=== PATIENT | male | born 1945 | race African-American/Black ===

== ENCOUNTER 2019-06-07 06:30 | Inpatient (IN) | payer MEDICARE, MEDICAID ==
[~2019-06-07] VITALS: Ht 165.1 cm; Wt 87.1 kg
[2019-06-07 11:10] LABS: BASOPHILS % 0.3 % (0.0-2.0); EOSINOPHILS % 0.9 % (0.0-5.0); HEMATOCRIT. 41.9 % (42.0-52.0); LYMPHOCYTES % 16.6 % (20.0-50.0); MEAN CORPUSCULAR HEMOGLOBIN 31.5 pg (28.0-32.0); MEAN CORPUSCULAR VOLUME 94.2 fL (80.0-94.0); MEAN PLATELET VOLUME 8.7 fl (7.4-10.4); MONOCYTES % 10.8 % (2.0-8.0); NEUTROPHILS % 71.4 % (40.0-76.0); PLATELET 148 x1000/uL (130-400); RED BLOOD CELL COUNT 4.45 mill/uL (4.7-6.1); RED CELL DISTRIBUTION WIDTH 14.9 % (11.6-14.6)
[2019-06-07 11:14] LABS: CHLORIDE 108 mEq/L (98-107); PROTHROMBIN TIME 10.5 sec (9.6-11.0)
[2019-06-07 11:21] LABS: ETHANOL BLOOD < 10 mg/dL
[2019-06-07] MEDS ORDERED: SODIUM CHLORIDE 0.9% 500 ML IV ONE (11:43)
[2019-06-07 13:22] LABS: CLARITY URINE CLOUDY (CLEAR); COLOR URINE YELLOW (YELLOW); KETONES URINE NEGATIVE (NEGATIVE); LEUKOCYTE ESTERASE URINE 2+ (NEGATIVE); NITRITE URINE NEGATIVE (NEGATIVE); OCCULT BLOOD URINE 1+ (NEGATIVE); PROTEIN URINE 2+ (NEGATIVE); SPECIFIC GRAVITY URINE 1.016 (1.005-1.030); UROBILINOGEN URINE 0.2 E.U./dL (0.2-1.0)
[2019-06-07 13:35] LABS: *BARBITURATES SCREEN URINE NEGATIVE (NEGATIVE); *BENZODIAZEPINES SCREEN URINE NEGATIVE (NEGATIVE); CANNABINOID URINE SCREEN NEGATIVE (NEGATIVE); METHADONE URINE SCREEN NEGATIVE (NEGATIVE); OPIATES URINE SCREEN NEGATIVE (NEGATIVE); PHENCYCLIDINE URINE SCREEN NEGATIVE (NEGATIVE)
[2019-06-07 13:37] LABS: *COCAINE SCREEN URINE NEGATIVE (NEGATIVE)
[2019-06-07 13:39] LABS: *AMPHETAMINES SCREEN URINE NEGATIVE (NEGATIVE)
[2019-06-07] MEDS ORDERED: CEFTRIAXONE 1 G PREMIX 50 ML IV ONE (14:30)
[2019-06-07] MEDS ORDERED: HYDRALAZINE 20MG/ML VIAL IV ONE (19:45)
[2019-06-07] MEDS ORDERED: DIPHENHYDRAMINE 50MG/ML VIAL IV PRN (22:00)
[2019-06-07] MEDS ORDERED: ACETAMINOPHEN 325MG TABLET PO PRN (22:00)
[2019-06-07] MEDS ORDERED: ONDANSETRON HCL 4MG/2ML INJ IV PRN (22:00)
[2019-06-07] MEDS ORDERED: MAGNESIUM/ALUMINUM HYDROXIDE/SIMETHICONE 30ML UDC PO PRN (22:00)
[2019-06-07] MEDS ORDERED: CLONIDINE 0.1MG TABLET PO PRN (22:00)
[2019-06-07] MEDS ORDERED: MVI, ADULT NO.1 10 ML, FOLIC ACID 1 MG, THIAMINE HCL 100 MG in SODIUM CHLORIDE 0.9% 1,0... IV SCH ×4 (22:00)
[2019-06-07] MEDS ORDERED: HYDRALAZINE 20MG/ML VIAL IV PRN (22:00)
[2019-06-07 22:35] LABS: T4 FREE 1.25 ng/dL (0.76-1.46)
[2019-06-07] MEDS ORDERED: LORAZEPAM 2MG/ML CPJ ONE (23:47)
[2019-06-07] MEDS ORDERED: HALOPERIDOL LACTATE 5MG/ML VIAL IM ONE (23:48)
[2019-06-08] MEDS ORDERED: LORAZEPAM 2MG/ML CPJ IV SCH
[2019-06-08] MEDS ORDERED: DIPHENHYDRAMINE 50MG/ML VIAL IV ONE
[2019-06-08] MEDS ORDERED: HALOPERIDOL LACTATE 5MG/ML VIAL IM SCH
[2019-06-08] MEDS ORDERED: DIPHENHYDRAMINE 50MG/ML VIAL IV PRN (00:15)
[2019-06-08] MEDS ORDERED: LORAZEPAM 2MG/ML CPJ IV PRN (00:15)
[2019-06-08] MEDS ORDERED: HALOPERIDOL LACTATE 5MG/ML VIAL IM PRN (00:15)
[2019-06-08] MEDS ORDERED: SODIUM CHLORIDE 0.9% 1,000 ML IV SCH (04:00)
[2019-06-08 04:40] LABS: BASOPHILS % 1.2 % (0.0-2.0); EOSINOPHILS % 0.6 % (0.0-5.0); HEMATOCRIT. 44.4 % (42.0-52.0); HEMOGLOBIN. 14.9 g/dL (14.0-18.0); LYMPHOCYTES % 11.2 % (20.0-50.0); MEAN CORPUSCULAR HEMOGLOBIN 31.6 pg (28.0-32.0); MEAN CORPUSCULAR VOLUME 94.1 fL (80.0-94.0); MEAN PLATELET VOLUME 8.7 fl (7.4-10.4); MONOCYTES % 9.3 % (2.0-8.0); NEUTROPHILS % 77.7 % (40.0-76.0); PLATELET 158 x1000/uL (130-400); RED BLOOD CELL COUNT 4.72 mill/uL (4.7-6.1); RED CELL DISTRIBUTION WIDTH 14.6 % (11.6-14.6)
[2019-06-08 04:50] LABS: CHLORIDE 108 mEq/L (98-107)
[2019-06-08 04:56] LABS: PHOSPHORUS 1.7 mg/dL (2.5-4.9)
[2019-06-08] MEDS: NIFEDIPINE XL 30MG TAB PO SCH ×2 (10:26→20:19)
[2019-06-08] MEDS ORDERED: ENOXAPARIN 40MG/0.4ML SYR SUBCUT SCH (13:00)
[2019-06-08 13:20] VITALS: BP 165/97
[2019-06-08] MEDS ORDERED: CEFTRIAXONE 1 G PREMIX 50 ML IV SCH ×2 (15:00→17:00)
[2019-06-08] MEDS ORDERED: METH250T26 MT (15:13)
[2019-06-08] MEDS ORDERED: HYDR12.54 MT (15:13)
[2019-06-08] MEDS ORDERED: IMIP25TA6 MT (15:13)
[2019-06-08] MEDS ORDERED: FISH MT (15:39)
[2019-06-08] MEDS ORDERED: FINA1TAB18 MT (15:39)
[2019-06-08] MEDS ORDERED: TERA10CA4 MT (15:39)
[2019-06-08] MEDS ORDERED: [UNRECOGNIZED DRUG - CODE] PO (15:39)
[2019-06-08] MEDS ORDERED: METF-815 MT (15:39)
[2019-06-08 16:52] VITALS: BP 116/78
[2019-06-08 20:00] VITALS: BP 127/58
[2019-06-08] MEDS: ENOXAPARIN 30MG/0.3ML SYR SUBCUT SCH (20:52)
[2019-06-09] VITALS: BP_SYST 127; BP_SYST 95; BP_DIAS 58; BP_DIAS 60
[2019-06-09 04:00] VITALS: BP 141/71
[2019-06-09 08:17] VITALS: BP 107/75
[2019-06-09] MEDS ORDERED: INFLUENZA VIRUS VACCINE(AFLURIA) 0.5ML SYR IM ONE (09:00)
[2019-06-09] MEDS ORDERED: PNEUMOCOCCAL 23-VAL P-SAC VAC 0.5 ML IM ONE (09:00)
[2019-06-09] MEDS: NIFEDIPINE XL 30MG TAB PO SCH ×2 (09:14→20:30)
[2019-06-09] MEDS: ENOXAPARIN 30MG/0.3ML SYR SUBCUT SCH ×2 (09:14→20:30)
[2019-06-09] MEDS ORDERED: SODIUM PHOS,M-BASIC-D-BASIC 20 MM in DEXT 5% WATER 243.3333 ML IV NR (10:30)
[2019-06-09 12:38] VITALS: BP 144/82
[2019-06-09] MEDS ORDERED: DEXTROSE 50% WATER 50ML SYRINGE IV PRN (13:15)
[2019-06-09 16:15] VITALS: BP 128/79
[2019-06-09] MEDS: MEROPENEM 1,000 MG in SODIUM CHLORIDE 0.9% 100 ML IV SCH ×2 (17:05→22:19)
[2019-06-09] MEDS: BLOOD SUGAR DIAGNOSTIC STRIP TEST SCH ×2 (17:10→20:30)
[2019-06-09] MEDS: INSULIN LISPRO 100 UNITS/ML SUBCUT SCH ×2 (17:40→21:00)
[2019-06-09 20:00] VITALS: BP 116/73
[2019-06-09] MEDS ORDERED: TERAZOSIN HCL 5MG CAPSULE PO SCH (21:00)
[2019-06-09] MEDS ORDERED: IMIPRAMINE HCL 25MG TABLET PO SCH (21:00)
[2019-06-10] VITALS: BP 118/60
[2019-06-10 04:00] VITALS: BP 142/86
[2019-06-10] MEDS: MEROPENEM 1,000 MG in SODIUM CHLORIDE 0.9% 100 ML IV SCH ×2 (06:00→14:26)
[2019-06-10] MEDS: INSULIN LISPRO 100 UNITS/ML SUBCUT SCH ×2 (07:40→12:03)
[2019-06-10] MEDS: BLOOD SUGAR DIAGNOSTIC STRIP TEST SCH ×2 (07:42→12:03)
[2019-06-10 07:57] VITALS: BP 154/78
[2019-06-10] MEDS: NIFEDIPINE XL 30MG TAB PO SCH (08:19)
[2019-06-10] MEDS: ENOXAPARIN 30MG/0.3ML SYR SUBCUT SCH (08:20)
[2019-06-10] MEDS ORDERED: FINASTERIDE 5MG TABLET PO SCH (09:00)
[2019-06-10 12:00] VITALS: BP 148/79
[2019-06-10 14:56] VITALS: BP 148/79
[2019-06-10 16:00] VITALS: BP 148/81
== END 2019-06-10 17:25 | disposition home or self-care (01) | DRG 470 ==
LOC: ER 06:51 → 8WST 19:39 → EDBEDREQTM 19:43 → EDBEDREQ 19:43 → EDBEDREQSVC 19:43 → ENRESERV 06-08 08:33
PROVIDERS: ADMIT Internal Medicine; ATTEND Internal Medicine
DX: I12.9 Hypertensive chronic kidney disease with stage 1 through stage 4 chronic kidney disease, or unspecified chronic kidney disease (principal); E11.22 Type 2 diabetes mellitus with diabetic chronic kidney disease; N39.0 Urinary tract infection, site not specified; I16.1 Hypertensive emergency; F23 Brief psychotic disorder; H54.8 Legal blindness, as defined in USA; N18.9 Chronic kidney disease, unspecified; F32.9 Major depressive disorder, single episode, unspecified; F41.9 Anxiety disorder, unspecified; Z87.891 Personal history of nicotine dependence; Z82.49 Family history of ischemic heart disease and other diseases of the circulatory system
CPT/HCPCS: 36415; 71045; 80053; 80305; 80320; 81003; 82962; 83036; 83735; 84100; 84439; 84443; 84484; 85025; 87077; 87186; 93005; 99285; J0360; J0696; J1200; J1630; J1650; J2060; J2185; J3411; J3490; J7030; J7050; J7060; G0480

== ENCOUNTER 2020-11-01 10:49 | Inpatient (IN) | payer MEDICARE, MEDICAID ==
[~2020-11-01] VITALS: Ht 175.3 cm; Wt 77.6 kg
[~2020-11-01 10:49] MED LIST: FINA1TAB18 MT; FISH MT; HYDR12.54 MT; IMIP25TA6 MT; METF-873 MT; METH250T26 MT; TERA10CA4 MT; [UNRECOGNIZED DRUG - CODE] PO
[2020-11-01 11:37] LABS: BASOPHILS % 1.1 % (0.0-2.0); EOSINOPHILS % 1.5 % (0.0-5.0); HEMATOCRIT. 35.1 % (42.0-52.0); HEMOGLOBIN. 11.9 g/dL (14.0-18.0); MEAN CORPUSCULAR HEMOGLOBIN 31.3 pg (28.0-32.0); MEAN CORPUSCULAR VOLUME 92.2 fL (80.0-94.0); MEAN PLATELET VOLUME 7.2 fl (7.4-10.4); MONOCYTES % 9.1 % (2.0-8.0); NEUTROPHILS % 65.3 % (40.0-76.0); PLATELET 180 x1000/uL (130-400); RED CELL DISTRIBUTION WIDTH 15.7 % (11.6-14.6)
[2020-11-01 11:44] LABS: CHLORIDE 115 mEq/L (98-107)
[2020-11-01 11:49] LABS: PROTHROMBIN TIME 10.4 sec (9.6-11.0)
[2020-11-01] MEDS ORDERED: CLOP75TA33 MT (13:54)
[2020-11-01] MEDS ORDERED: AMLO10TA80 PO (13:54)
[2020-11-01 14:00] LABS: CLARITY URINE CLEAR (CLEAR); COLOR URINE YELLOW (YELLOW); KETONES URINE NEGATIVE (NEGATIVE); LEUKOCYTE ESTERASE URINE 1+ (NEGATIVE); NITRITE URINE NEGATIVE (NEGATIVE); OCCULT BLOOD URINE NEGATIVE (NEGATIVE); PROTEIN URINE TRACE (NEGATIVE); SPECIFIC GRAVITY URINE 1.014 (1.005-1.030); UROBILINOGEN URINE 0.2 E.U./dL (0.2-1.0)
[2020-11-01] MEDS ORDERED: SODIUM CHLORIDE 0.9% 1,000 ML IV ONE (14:00)
[2020-11-01] MEDS ORDERED: CEFTRIAXONE 1 G PREMIX 50 ML IV ONE (14:15)
[2020-11-01] MEDS ORDERED: METRONIDAZOLE 500 MG PREMIX 100 ML IV NR (15:30)
[2020-11-01] MEDS ORDERED: ONDANSETRON HCL 4MG/2ML INJ IV PRN (16:30)
[2020-11-01] MEDS ORDERED: LORAZEPAM 0.5MG TABLET PO PRN (16:30)
[2020-11-01] MEDS ORDERED: HYDROCODONE/ACETAMINOPHEN 5/325MG TABLET PO PRN (16:30)
[2020-11-01] MEDS ORDERED: IPRATROPIUM/ALBUTEROL 0.5-3(2.5)MG/3ML NEB HHN PRN (16:30)
[2020-11-01] MEDS ORDERED: CEFEPIME 2GM PREMIX 100 ML IV NR (16:30)
[2020-11-01] MEDS ORDERED: CLONIDINE 0.1MG TABLET PO PRN (16:30)
[2020-11-01 17:19] VITALS: BP 150/90
[2020-11-01 17:34] VITALS: BP 150/90
[2020-11-01 20:00] VITALS: BP 126/66
[2020-11-01] MEDS: SODIUM CHLORIDE 0.9% 1,000 ML IV SCH (21:21)
[2020-11-02] VITALS: BP 139/69
[2020-11-02 04:00] VITALS: BP 164/69
[2020-11-02] MEDS: SODIUM CHLORIDE 0.9% 1,000 ML IV SCH ×2 (05:15→17:45)
[2020-11-02] MEDS ORDERED: CEFEPIME 2,000 MG in DEXT 5% WATER 100 ML IV SCH (06:00)
[2020-11-02 08:00] VITALS: BP 160/70
[2020-11-02] MEDS: CLOPIDOGREL 75MG TABLET PO SCH (10:37)
[2020-11-02] MEDS: FISH OIL/OMEGA-3 FATTY ACIDS 1000MG CAPSULE PO SCH (10:37)
[2020-11-02] MEDS: AMLODIPINE 10MG TABLET PO SCH (10:37)
[2020-11-02] MEDS: FINASTERIDE 5MG TABLET PO SCH (10:37)
[2020-11-02] MEDS ORDERED: METFORMIN HCL 500MG TABLET PO SCH (10:45)
[2020-11-02] MEDS ORDERED: METHYLDOPA 250MG TABLET PO SCH (11:00)
[2020-11-02 12:00] VITALS: BP 145/83
[2020-11-02 15:35] LABS: BASOPHILS % 0.7 % (0.0-2.0); EOSINOPHILS % 3.1 % (0.0-5.0); HEMATOCRIT. 34.9 % (42.0-52.0); LYMPHOCYTES % 18.7 % (20.0-50.0); MEAN CORPUSCULAR HEMOGLOBIN 31.9 pg (28.0-32.0); MEAN CORPUSCULAR VOLUME 92.3 fL (80.0-94.0); MEAN PLATELET VOLUME 7.8 fl (7.4-10.4); MONOCYTES % 9.8 % (2.0-8.0); NEUTROPHILS % 67.7 % (40.0-76.0); PLATELET 184 x1000/uL (130-400); RED BLOOD CELL COUNT 3.78 mill/uL (4.7-6.1); RED CELL DISTRIBUTION WIDTH 15.4 % (11.6-14.6)
[2020-11-02 15:40] LABS: CHLORIDE 110 mEq/L (98-107)
[2020-11-02 16:00] VITALS: BP 141/82
[2020-11-02 18:17] LABS: T4 FREE 1.03 ng/dL (0.76-1.46)
[2020-11-02 18:27] LABS: FOLIC ACID (FOLATE) SERUM 10.6 ng/mL (>5.38)
[2020-11-02] MEDS: CEFEPIME 2,000 MG in DEXT 5% WATER 100 ML IV SCH (19:50)
[2020-11-02 20:00] VITALS: BP 146/72
[2020-11-02] MEDS: IMIPRAMINE HCL 25MG TABLET PO SCH (21:43)
[2020-11-02] MEDS: TERAZOSIN HCL 5MG CAPSULE PO SCH (21:44)
[2020-11-02] MEDS ORDERED: CLONIDINE 0.1MG TABLET PO PRN (22:00)
[2020-11-03] VITALS: BP 132/73
[2020-11-03 04:00] VITALS: BP 130/93
[2020-11-03] MEDS: SODIUM CHLORIDE 0.9% 1,000 ML IV SCH ×2 (06:05→18:26)
[2020-11-03] MEDS: CEFEPIME 2,000 MG in DEXT 5% WATER 100 ML IV SCH ×2 (06:06→18:26)
[2020-11-03 06:38] LABS: CHLORIDE 110 mEq/L (98-107)
[2020-11-03 06:54] LABS: BASOPHILS % 0.8 % (0.0-2.0); EOSINOPHILS % 4.2 % (0.0-5.0); HEMATOCRIT. 38.8 % (42.0-52.0); HEMOGLOBIN. 12.8 g/dL (14.0-18.0); LYMPHOCYTES % 29.3 % (20.0-50.0); MEAN CORPUSCULAR HEMOGLOBIN 30.7 pg (28.0-32.0); MEAN CORPUSCULAR VOLUME 92.7 fL (80.0-94.0); MEAN PLATELET VOLUME 7.9 fl (7.4-10.4); NEUTROPHILS % 53.7 % (40.0-76.0); PLATELET 167 x1000/uL (130-400); RED BLOOD CELL COUNT 4.19 mill/uL (4.7-6.1); RED CELL DISTRIBUTION WIDTH 15.5 % (11.6-14.6)
[2020-11-03 08:00] VITALS: BP 128/81
[2020-11-03] MEDS: HYDROCHLOROTHIAZIDE 12.5MG CAPSULE PO SCH (08:54)
[2020-11-03] MEDS: AMLODIPINE 10MG TABLET PO SCH (08:55)
[2020-11-03] MEDS: METFORMIN HCL 500MG TABLET PO SCH (08:55)
[2020-11-03] MEDS: CLOPIDOGREL 75MG TABLET PO SCH (08:55)
[2020-11-03] MEDS: FINASTERIDE 5MG TABLET PO SCH (08:55)
[2020-11-03] MEDS: FISH OIL/OMEGA-3 FATTY ACIDS 1000MG CAPSULE PO SCH (08:55)
[2020-11-03] MEDS ORDERED: METHYLDOPA 250MG TABLET PO SCH (09:00)
[2020-11-03 12:00] VITALS: BP 120/75
[2020-11-03 16:00] VITALS: BP 123/85
[2020-11-03] MEDS: METOPROLOL TARTRATE 25MG TABLET PO SCH ×2 (17:02→21:19)
[2020-11-03 18:44] LABS: *AMPHETAMINES SCREEN URINE NEGATIVE (NEGATIVE); *BARBITURATES SCREEN URINE NEGATIVE (NEGATIVE); *BENZODIAZEPINES SCREEN URINE NEGATIVE (NEGATIVE); *COCAINE SCREEN URINE NEGATIVE (NEGATIVE); METHADONE URINE SCREEN NEGATIVE (NEGATIVE); OPIATES URINE SCREEN NEGATIVE (NEGATIVE)
[2020-11-03 18:45] LABS: CANNABINOID URINE SCREEN NEGATIVE (NEGATIVE); PHENCYCLIDINE URINE SCREEN NEGATIVE (NEGATIVE)
[2020-11-03 20:00] VITALS: BP 115/67
[2020-11-03] MEDS: IMIPRAMINE HCL 25MG TABLET PO SCH (21:19)
[2020-11-03] MEDS: TERAZOSIN HCL 5MG CAPSULE PO SCH (21:20)
[2020-11-04] VITALS (7 sets, daily range): BP systolic 107–138; BP diastolic 60–76
[2020-11-04] MEDS: METFORMIN HCL 500MG TABLET PO SCH (05:34)
[2020-11-04] MEDS: CEFEPIME 2,000 MG in DEXT 5% WATER 100 ML IV SCH ×2 (05:34→18:08)
[2020-11-04 06:34] LABS: BASOPHILS % 0.8 % (0.0-2.0); EOSINOPHILS % 4.5 % (0.0-5.0); HEMOGLOBIN. 12.2 g/dL (14.0-18.0); LYMPHOCYTES % 28.2 % (20.0-50.0); MEAN CORPUSCULAR HEMOGLOBIN 31.4 pg (28.0-32.0); MEAN CORPUSCULAR VOLUME 92.5 fL (80.0-94.0); MEAN PLATELET VOLUME 7.9 fl (7.4-10.4); MONOCYTES % 13.7 % (2.0-8.0); NEUTROPHILS % 52.8 % (40.0-76.0); PLATELET 157 x1000/uL (130-400); RED BLOOD CELL COUNT 3.89 mill/uL (4.7-6.1); RED CELL DISTRIBUTION WIDTH 15.3 % (11.6-14.6)
[2020-11-04 06:54] LABS: CHLORIDE 111 mEq/L (98-107)
[2020-11-04] MEDS: HYDROCHLOROTHIAZIDE 12.5MG CAPSULE PO SCH (08:33)
[2020-11-04] MEDS: AMLODIPINE 10MG TABLET PO SCH (08:33)
[2020-11-04] MEDS: SODIUM CHLORIDE 0.9% 1,000 ML IV SCH ×2 (08:33→18:32)
[2020-11-04] MEDS: FINASTERIDE 5MG TABLET PO SCH (08:34)
[2020-11-04] MEDS: FISH OIL/OMEGA-3 FATTY ACIDS 1000MG CAPSULE PO SCH (08:34)
[2020-11-04] MEDS: CLOPIDOGREL 75MG TABLET PO SCH (08:34)
[2020-11-04] MEDS: METOPROLOL TARTRATE 25MG TABLET PO SCH (08:34)
[2020-11-04] MEDS: SPIRONOLACTONE 25MG TABLET PO SCH (09:48)
[2020-11-04] MEDS: LISINOPRIL 5MG TABLET PO SCH (09:48)
[2020-11-04] MEDS: TERAZOSIN HCL 5MG CAPSULE PO SCH (21:08)
[2020-11-04] MEDS: IMIPRAMINE HCL 25MG TABLET PO SCH (21:08)
[2020-11-04] MEDS: DOCUSATE SODIUM 100MG CAPSULE PO PRN (21:20)
[2020-11-05] VITALS: BP 124/76
[2020-11-05 04:00] VITALS: BP 135/90
[2020-11-05 05:37] LABS: CHLORIDE 112 mEq/L (98-107)
[2020-11-05] MEDS: CEFEPIME 2,000 MG in DEXT 5% WATER 100 ML IV SCH ×2 (06:19→18:31)
[2020-11-05] MEDS: SODIUM CHLORIDE 0.9% 1,000 ML IV SCH ×2 (06:19→21:14)
[2020-11-05] MEDS: METFORMIN HCL 500MG TABLET PO SCH (06:24)
[2020-11-05 06:29] LABS: BASOPHILS % 0.8 % (0.0-2.0); EOSINOPHILS % 3.8 % (0.0-5.0); HEMATOCRIT. 35.7 % (42.0-52.0); HEMOGLOBIN. 11.9 g/dL (14.0-18.0); LYMPHOCYTES % 27.6 % (20.0-50.0); MEAN CORPUSCULAR HEMOGLOBIN 30.8 pg (28.0-32.0); MEAN CORPUSCULAR VOLUME 92.2 fL (80.0-94.0); MEAN PLATELET VOLUME 8.2 fl (7.4-10.4); MONOCYTES % 12.5 % (2.0-8.0); NEUTROPHILS % 55.3 % (40.0-76.0); PLATELET 167 x1000/uL (130-400); RED BLOOD CELL COUNT 3.87 mill/uL (4.7-6.1); RED CELL DISTRIBUTION WIDTH 15.3 % (11.6-14.6)
[2020-11-05 08:00] VITALS: BP 107/67
[2020-11-05] MEDS: AMLODIPINE 10MG TABLET PO SCH (09:00)
[2020-11-05] MEDS: LISINOPRIL 5MG TABLET PO SCH (09:00)
[2020-11-05] MEDS: CLOPIDOGREL 75MG TABLET PO SCH (09:44)
[2020-11-05] MEDS: FINASTERIDE 5MG TABLET PO SCH (09:44)
[2020-11-05] MEDS: SPIRONOLACTONE 25MG TABLET PO SCH (09:44)
[2020-11-05] MEDS: FISH OIL/OMEGA-3 FATTY ACIDS 1000MG CAPSULE PO SCH (09:44)
[2020-11-05 12:00] VITALS: BP 150/69
[2020-11-05] MEDS: DOCUSATE SODIUM 100MG CAPSULE PO PRN (12:32)
[2020-11-05 16:00] VITALS: BP 108/72
[2020-11-05 20:00] VITALS: BP 131/78
[2020-11-05] MEDS: IMIPRAMINE HCL 25MG TABLET PO SCH (20:34)
[2020-11-05] MEDS: TERAZOSIN HCL 5MG CAPSULE PO SCH (20:34)
[2020-11-06] VITALS: BP 102/60
[2020-11-06 04:00] VITALS: BP 152/81
[2020-11-06 06:13] LABS: BASOPHILS % 1.2 % (0.0-2.0); EOSINOPHILS % 4.4 % (0.0-5.0); HEMATOCRIT. 35.1 % (42.0-52.0); HEMOGLOBIN. 11.7 g/dL (14.0-18.0); MEAN CORPUSCULAR VOLUME 92.8 fL (80.0-94.0); MEAN PLATELET VOLUME 8.3 fl (7.4-10.4); MONOCYTES % 14.6 % (2.0-8.0); NEUTROPHILS % 48.8 % (40.0-76.0); PLATELET 159 x1000/uL (130-400); RED BLOOD CELL COUNT 3.78 mill/uL (4.7-6.1); RED CELL DISTRIBUTION WIDTH 15.1 % (11.6-14.6)
[2020-11-06 06:20] LABS: CHLORIDE 112 mEq/L (98-107)
[2020-11-06] MEDS: METFORMIN HCL 500MG TABLET PO SCH (06:58)
[2020-11-06] MEDS: CEFEPIME 2,000 MG in DEXT 5% WATER 100 ML IV SCH ×2 (06:58→20:59)
[2020-11-06 08:00] VITALS: BP_SYST 104; BP_SYST 145; BP_DIAS 80; BP_DIAS 82
[2020-11-06] MEDS ORDERED: HEPARIN SODIUM 1,000 UNIT/1ML VIAL IV ONE (08:21)
[2020-11-06] MEDS: CLOPIDOGREL 75MG TABLET PO SCH (10:50)
[2020-11-06] MEDS: SPIRONOLACTONE 25MG TABLET PO SCH (10:50)
[2020-11-06] MEDS: AMLODIPINE 10MG TABLET PO SCH (10:50)
[2020-11-06] MEDS: FISH OIL/OMEGA-3 FATTY ACIDS 1000MG CAPSULE PO SCH (10:50)
[2020-11-06] MEDS: LISINOPRIL 5MG TABLET PO SCH (10:50)
[2020-11-06] MEDS: FINASTERIDE 5MG TABLET PO SCH (10:50)
[2020-11-06] MEDS: SODIUM CHLORIDE 0.9% 1,000 ML IV SCH (10:51)
[2020-11-06 15:17] VITALS: BP 104/80
[2020-11-06] MEDS ORDERED: IODIXANOL 320MG/ML 100 ML BOTTLE IV ONE (15:23)
[2020-11-06] MEDS ORDERED: LIDOCAINE HCL 1% 20ML VIAL (Pyxis) INJ ONE (15:23)
[2020-11-06] MEDS ORDERED: MIDAZOLAM HCL 2 MG/2 ML VIAL ONE (15:40)
[2020-11-06] MEDS ORDERED: FENTANYL CITRATE/PF 50MCG/ML 2ML VIAL ONE (15:40)
[2020-11-06] MEDS ORDERED: VERAPAMIL HCL 2.5 MG/1 ML 2ML VIAL IV ONE (15:41)
[2020-11-06] MEDS ORDERED: ATROPINE SULFATE 1MG/10ML SYR IV PRN (17:15)
[2020-11-06] MEDS ORDERED: HYDRALAZINE 20MG/ML VIAL IV PRN (18:15)
[2020-11-06 20:00] VITALS: BP 139/89
[2020-11-06] MEDS: IMIPRAMINE HCL 25MG TABLET PO SCH (20:59)
[2020-11-06] MEDS: TERAZOSIN HCL 5MG CAPSULE PO SCH (20:59)
[2020-11-07] VITALS (7 sets, daily range): BP systolic 104–137; BP diastolic 54–83
[2020-11-07] MEDS: SODIUM CHLORIDE 0.9% 1,000 ML IV SCH ×3 (02:51→22:10)
[2020-11-07] MEDS: METFORMIN HCL 500MG TABLET PO SCH (06:17)
[2020-11-07 06:50] LABS: BASOPHILS % 0.6 % (0.0-2.0); HEMATOCRIT. 34.3 % (42.0-52.0); HEMOGLOBIN. 11.5 g/dL (14.0-18.0); LYMPHOCYTES % 16.8 % (20.0-50.0); MEAN CORPUSCULAR HEMOGLOBIN 31.2 pg (28.0-32.0); MEAN CORPUSCULAR VOLUME 92.8 fL (80.0-94.0); MEAN PLATELET VOLUME 8.2 fl (7.4-10.4); MONOCYTES % 11.8 % (2.0-8.0); NEUTROPHILS % 68.8 % (40.0-76.0); PLATELET 170 x1000/uL (130-400); RED BLOOD CELL COUNT 3.69 mill/uL (4.7-6.1); RED CELL DISTRIBUTION WIDTH 15.2 % (11.6-14.6)
[2020-11-07 06:51] LABS: CHLORIDE 108 mEq/L (98-107)
[2020-11-07] MEDS: CLOPIDOGREL 75MG TABLET PO SCH (10:29)
[2020-11-07] MEDS: FISH OIL/OMEGA-3 FATTY ACIDS 1000MG CAPSULE PO SCH (10:30)
[2020-11-07] MEDS: SPIRONOLACTONE 25MG TABLET PO SCH (10:30)
[2020-11-07] MEDS: FINASTERIDE 5MG TABLET PO SCH (10:31)
[2020-11-07] MEDS: AMLODIPINE 10MG TABLET PO SCH (10:31)
[2020-11-07] MEDS: LISINOPRIL 5MG TABLET PO SCH (10:32)
[2020-11-07] MEDS ORDERED: LISI-186 PO ×2 (11:52)
[2020-11-07] MEDS ORDERED: SPIR25TA PO ×2 (11:52)
[2020-11-07] MEDS: TERAZOSIN HCL 5MG CAPSULE PO SCH (20:31)
[2020-11-07] MEDS: IMIPRAMINE HCL 25MG TABLET PO SCH (20:55)
[2020-11-08] VITALS: BP_SYST 104; BP_SYST 136; BP_DIAS 54; BP_DIAS 88
[2020-11-08 04:00] VITALS: BP 125/72
[2020-11-08] MEDS: METFORMIN HCL 500MG TABLET PO SCH (06:18)
[2020-11-08 08:00] VITALS: BP 117/60
[2020-11-08] MEDS: CLOPIDOGREL 75MG TABLET PO SCH (09:10)
[2020-11-08] MEDS: FISH OIL/OMEGA-3 FATTY ACIDS 1000MG CAPSULE PO SCH (09:10)
[2020-11-08] MEDS: FINASTERIDE 5MG TABLET PO SCH (09:10)
[2020-11-08] MEDS: AMLODIPINE 10MG TABLET PO SCH (09:11)
[2020-11-08] MEDS: LISINOPRIL 5MG TABLET PO SCH (09:11)
[2020-11-08] MEDS: CARVEDILOL 3.125 MG TABLET PO SCH ×2 (09:11→21:30)
[2020-11-08] MEDS: SPIRONOLACTONE 25MG TABLET PO SCH (09:12)
[2020-11-08 12:00] VITALS: BP 132/76
[2020-11-08 16:00] VITALS: BP 125/64
[2020-11-08 20:00] VITALS: BP 118/82
[2020-11-08] MEDS: TERAZOSIN HCL 5MG CAPSULE PO SCH (21:30)
[2020-11-08] MEDS: IMIPRAMINE HCL 25MG TABLET PO SCH (21:30)
[2020-11-08] MEDS: SODIUM CHLORIDE 0.9% 1,000 ML IV SCH ×2 (21:44→23:45)
[2020-11-08] MEDS ORDERED: IOHEXOL-300 100 ML BOTTLE ONE (22:47)
[2020-11-09] VITALS (7 sets, daily range): BP systolic 108–172; BP diastolic 59–96
[2020-11-09] MEDS: ACETAMINOPHEN 325MG TABLET PO PRN ×2 (01:47→17:46)
[2020-11-09 05:22] LABS: CHLORIDE 108 mEq/L (98-107)
[2020-11-09] MEDS: METFORMIN HCL 500MG TABLET PO SCH (06:33)
[2020-11-09] MEDS: FISH OIL/OMEGA-3 FATTY ACIDS 1000MG CAPSULE PO SCH (09:24)
[2020-11-09] MEDS: CLOPIDOGREL 75MG TABLET PO SCH (09:25)
[2020-11-09] MEDS: LISINOPRIL 5MG TABLET PO SCH (09:25)
[2020-11-09] MEDS: SPIRONOLACTONE 25MG TABLET PO SCH (09:25)
[2020-11-09] MEDS: CARVEDILOL 3.125 MG TABLET PO SCH ×2 (09:25→21:00)
[2020-11-09] MEDS: FINASTERIDE 5MG TABLET PO SCH (09:25)
[2020-11-09] MEDS: AMLODIPINE 10MG TABLET PO SCH (11:02)
[2020-11-09] MEDS: SODIUM CHLORIDE 0.9% 1,000 ML IV SCH (12:15)
[2020-11-09] MEDS: TERAZOSIN HCL 5MG CAPSULE PO SCH (21:31)
[2020-11-09] MEDS: IMIPRAMINE HCL 25MG TABLET PO SCH (21:32)
[2020-11-10] VITALS: BP 124/82
[2020-11-10] MEDS: SODIUM CHLORIDE 0.9% 1,000 ML IV SCH (01:43)
[2020-11-10 04:00] VITALS: BP 126/63
[2020-11-10 08:00] VITALS: BP 130/80
[2020-11-10] MEDS: METFORMIN HCL 500MG TABLET PO SCH (08:41)
[2020-11-10] MEDS: CLOPIDOGREL 75MG TABLET PO SCH (08:41)
[2020-11-10] MEDS: AMLODIPINE 10MG TABLET PO SCH (08:41)
[2020-11-10] MEDS: FISH OIL/OMEGA-3 FATTY ACIDS 1000MG CAPSULE PO SCH (08:41)
[2020-11-10] MEDS: SPIRONOLACTONE 25MG TABLET PO SCH (08:42)
[2020-11-10] MEDS: CARVEDILOL 3.125 MG TABLET PO SCH (08:42)
[2020-11-10] MEDS: LISINOPRIL 5MG TABLET PO SCH (08:42)
[2020-11-10] MEDS: FINASTERIDE 5MG TABLET PO SCH (08:42)
[2020-11-10] MEDS ORDERED: COR3 PO ×2 (10:26)
[2020-11-10] MEDS ORDERED: CARV3.1242 MT (11:41)
[2020-11-10] MEDS ORDERED: LISI-186 MT (11:41)
[2020-11-10] MEDS ORDERED: SPIR25TA MT (11:41)
[2020-11-10 11:42] VITALS: BP 125/73
== END 2020-11-10 12:30 | disposition home or self-care (01) | DRG 286 ==
LOC: ER 10:49 → EDBEDREQ 15:49 → EDBEDREQTM 15:49 → ENRESERV 16:07 → 5WST 17:48
PROVIDERS: ADMIT Internal Medicine; ATTEND Internal Medicine
PROC: 4A023N7 Measurement of Cardiac Sampling and Pressure, Left Heart, Percutaneous Approach (ICD-10-PCS; principal; 2020-11-06)
PROC: B2111ZZ Fluoroscopy of Multiple Coronary Arteries using Low Osmolar Contrast (ICD-10-PCS; 2020-11-06)
DX: I25.10 Atherosclerotic heart disease of native coronary artery without angina pectoris (principal); G92 Toxic encephalopathy; I50.23 Acute on chronic systolic (congestive) heart failure; N39.0 Urinary tract infection, site not specified; I13.0 Hypertensive heart and chronic kidney disease with heart failure and stage 1 through stage 4 chronic kidney disease, or unspecified chronic kidney disease; N17.9 Acute kidney failure, unspecified; I42.0 Dilated cardiomyopathy; D64.9 Anemia, unspecified; D72.821 Monocytosis (symptomatic); N18.9 Chronic kidney disease, unspecified; F03.90 Unspecified dementia, unspecified severity, without behavioral disturbance, psychotic disturbance, mood disturbance, and anxiety; E78.00 Pure hypercholesterolemia, unspecified; Z20.822 Contact with and (suspected) exposure to COVID-19; E11.22 Type 2 diabetes mellitus with diabetic chronic kidney disease; F32.9 Major depressive disorder, single episode, unspecified; I08.1 Rheumatic disorders of both mitral and tricuspid valves; Z86.73 Personal history of transient ischemic attack (TIA), and cerebral infarction without residual deficits; Z95.5 Presence of coronary angioplasty implant and graft
CPT/HCPCS: 36415; 70496; 70498; 70551; 71045; 80048; 80053; 80061; 80305; 81003; 82140; 82607; 82728; 82746; 83540; 83550; 83880; 84439; 84443; 84481; 84484; 85025; 87426; 93005; 93306; 93458; 97162; 99285; C1769; C1887; C1893; J0360; J0692; J0696; J1644; J2250; J3010; J3490; J7030; J7060; Q9967

== ENCOUNTER 2020-11-29 10:06 | Emergency (ER) | payer MEDICARE, MEDICAID ==
[~2020-11-29] VITALS: Ht 170.2 cm; Wt 82.0 kg
[~2020-11-29 10:06] MED LIST changes: +AMLO10TA80 PO; +CARV3.1242 MT; +CLOP75TA33 MT; -HYDR12.54 MT; +LISI-186 MT; +SPIR25TA MT
[2020-11-29] MEDS ORDERED: TERBUTALINE SULFATE 1MG/ML VIAL SUBCUT PRN (11:15)
[2020-11-29] MEDS ORDERED: PHENYLEPHRINE 50 MG in DEXT 5% WATER 245 ML IV PRN (11:15)
[2020-11-29] MEDS ORDERED: PHENYLEPHRINE HCL 10 MG/ML 1ML (IV VIAL) IV SCH (11:30)
[2020-11-29 12:01] LABS: BASOPHILS % 0.7 % (0.0-2.0); EOSINOPHILS % 1.7 % (0.0-5.0); HEMATOCRIT. 35.2 % (42.0-52.0); HEMOGLOBIN. 12.3 g/dL (14.0-18.0); LYMPHOCYTES % 23.3 % (20.0-50.0); MEAN CORPUSCULAR HEMOGLOBIN 32.6 pg (28.0-32.0); MEAN CORPUSCULAR VOLUME 92.8 fL (80.0-94.0); MEAN PLATELET VOLUME 8.5 fl (7.4-10.4); MONOCYTES % 14.1 % (2.0-8.0); NEUTROPHILS % 60.2 % (40.0-76.0); PLATELET 179 x1000/uL (130-400); RED BLOOD CELL COUNT 3.79 mill/uL (4.7-6.1); RED CELL DISTRIBUTION WIDTH 15.6 % (11.6-14.6)
[2020-11-29 12:12] LABS: PROTHROMBIN TIME 10.6 sec (9.6-11.0)
[2020-11-29 12:34] LABS: CHLORIDE 112 mEq/L (98-107)
[2020-11-29] MEDS ORDERED: TAMS-11 MT (12:52)
[2020-11-29 13:14] LABS: CLARITY URINE CLEAR (CLEAR); COLOR URINE YELLOW (YELLOW); KETONES URINE TRACE (NEGATIVE); LEUKOCYTE ESTERASE URINE TRACE (NEGATIVE); NITRITE URINE NEGATIVE (NEGATIVE); OCCULT BLOOD URINE NEGATIVE (NEGATIVE); PROTEIN URINE 1+ (NEGATIVE); SPECIFIC GRAVITY URINE 1.018 (1.005-1.030); UROBILINOGEN URINE 0.2 E.U./dL (0.2-1.0)
[2020-11-29 13:30] VITALS: BP 135/80
== END 2020-11-29 13:30 | disposition home or self-care (01) ==
LOC: ER 10:10
DX: T83.719A Erosion of other prosthetic materials to surrounding organ or tissue, initial encounter (principal); N48.30 Priapism, unspecified; E11.9 Type 2 diabetes mellitus without complications; E78.00 Pure hypercholesterolemia, unspecified; I10 Essential (primary) hypertension; H54.7 Unspecified visual loss; Y84.8 Other medical procedures as the cause of abnormal reaction of the patient, or of later complication, without mention of misadventure at the time of the procedure; Y92.9 Unspecified place or not applicable; Z98.62 Peripheral vascular angioplasty status; Z86.73 Personal history of transient ischemic attack (TIA), and cerebral infarction without residual deficits
CPT/HCPCS: 36415; 80053; 81003; 85025; 85610; 99283; J2370; J3105

== ENCOUNTER 2021-08-16 14:33 | Emergency (ER) | payer MEDICARE, MEDICAID ==
[~2021-08-16] VITALS: Ht 170.2 cm; Wt 73.0 kg
[~2021-08-16 14:33] MED LIST changes: +TAMS-11 MT
[2021-08-16 15:55] LABS: BASOPHILS % 0.4 % (0.0-2.0); EOSINOPHILS % 1.9 % (0.0-5.0); HEMATOCRIT. 38.7 % (42.0-52.0); HEMOGLOBIN. 12.8 g/dL (14.0-18.0); LYMPHOCYTES % 23.3 % (20.0-50.0); MEAN CORPUSCULAR HEMOGLOBIN 31.2 pg (28.0-32.0); MEAN CORPUSCULAR VOLUME 93.8 fL (80.0-94.0); MEAN PLATELET VOLUME 8.1 fl (7.4-10.4); NEUTROPHILS % 67.4 % (40.0-76.0); PLATELET 191 x1000/uL (130-400); RED BLOOD CELL COUNT 4.12 mill/uL (4.7-6.1); RED CELL DISTRIBUTION WIDTH 14.9 % (11.6-14.6)
[2021-08-16 15:56] LABS: CHLORIDE 112 mEq/L (98-107)
[2021-08-17] MEDS ORDERED: NA PHOS,M-B/NA PHOS,DI-BA ENEMA 118ML PR ONE (00:45)
[2021-08-17] MEDS ORDERED: DOCU-138 MT (01:42)
[2021-08-17 01:59] VITALS: BP 107/76
== END 2021-08-17 02:02 | disposition home or self-care (01) ==
LOC: ER 14:33
DX: K59.00 Constipation, unspecified (principal); I11.9 Hypertensive heart disease without heart failure; E78.00 Pure hypercholesterolemia, unspecified; I25.2 Old myocardial infarction; E11.9 Type 2 diabetes mellitus without complications; Z98.62 Peripheral vascular angioplasty status; Z98.890 Other specified postprocedural states
CPT/HCPCS: 36415; 71045; 80053; 83880; 85025; 93005; 99285

== ENCOUNTER 2022-02-24 12:32 | Emergency (ER) | payer MEDICARE, MEDICAID ==
[~2022-02-24] VITALS: Ht 177.8 cm; Wt 80.0 kg
[~2022-02-24 12:32] MED LIST changes: +DOCU-138 MT
[2022-02-24 12:58] VITALS: BP 118/79
[2022-02-24 16:05] LABS: BASOPHILS % 0.6 % (0.0-2.0); EOSINOPHILS % 3.6 % (0.0-5.0); HEMATOCRIT. 40.6 % (42.0-52.0); HEMOGLOBIN. 13.4 g/dL (14.0-18.0); LYMPHOCYTES % 26.3 % (20.0-50.0); MEAN CORPUSCULAR HEMOGLOBIN 30.8 pg (28.0-32.0); MEAN CORPUSCULAR VOLUME 93.6 fL (80.0-94.0); MEAN PLATELET VOLUME 8.6 fl (7.4-10.4); MONOCYTES % 7.3 % (2.0-8.0); NEUTROPHILS % 62.2 % (40.0-76.0); PLATELET 193 x1000/uL (130-400); RED BLOOD CELL COUNT 4.34 mill/uL (4.7-6.1); RED CELL DISTRIBUTION WIDTH 14.9 % (11.6-14.6)
[2022-02-24 16:06] LABS: CHLORIDE 112 mEq/L (98-107)
== END 2022-02-24 17:01 | disposition home or self-care (01) ==
LOC: ER 13:32
DX: K59.00 Constipation, unspecified (principal); N17.9 Acute kidney failure, unspecified; I11.9 Hypertensive heart disease without heart failure; E11.9 Type 2 diabetes mellitus without complications; E78.00 Pure hypercholesterolemia, unspecified; I25.2 Old myocardial infarction; H54.7 Unspecified visual loss; Z98.61 Coronary angioplasty status; Z79.84 Long term (current) use of oral hypoglycemic drugs
CPT/HCPCS: 36415; 74018; 80053; 85025; 99284

== ENCOUNTER 2022-06-18 10:43 | Emergency (ER) | payer MEDICARE, MEDICAID ==
[~2022-06-18] VITALS: Ht 180.3 cm; Wt 78.0 kg
[2022-06-18 10:55] VITALS: BP 161/80
[2022-06-18 15:20] LABS: BASOPHILS % 0.9 % (0.0-2.0); EOSINOPHILS % 1.7 % (0.0-5.0); HEMATOCRIT. 39.6 % (42.0-52.0); LYMPHOCYTES % 24.7 % (20.0-50.0); MEAN CORPUSCULAR HEMOGLOBIN 31.2 pg (28.0-32.0); MEAN CORPUSCULAR VOLUME 94.7 fL (80.0-94.0); MEAN PLATELET VOLUME 8.2 fl (7.4-10.4); MONOCYTES % 7.6 % (2.0-8.0); NEUTROPHILS % 65.1 % (40.0-76.0); PLATELET 183 x1000/uL (130-400); RED BLOOD CELL COUNT 4.18 mill/uL (4.7-6.1)
[2022-06-18 15:24] LABS: CHLORIDE 114 mEq/L (98-107)
[2022-06-18 15:28] LABS: PROTHROMBIN TIME 10.7 sec (9.6-11.0)
[2022-06-18 16:48] LABS: CLARITY URINE CLOUDY (CLEAR); COLOR URINE YELLOW (YELLOW); KETONES URINE TRACE (NEGATIVE); LEUKOCYTE ESTERASE URINE 3+ (NEGATIVE); NITRITE URINE NEGATIVE (NEGATIVE); OCCULT BLOOD URINE NEGATIVE (NEGATIVE); PROTEIN URINE 2+ (NEGATIVE); SPECIFIC GRAVITY URINE 1.016 (1.005-1.030); UROBILINOGEN URINE 0.2 E.U./dL (0.2-1.0)
[2022-06-18 17:03] LABS: *AMPHETAMINES SCREEN URINE NEGATIVE (NEGATIVE); *BARBITURATES SCREEN URINE NEGATIVE (NEGATIVE); *BENZODIAZEPINES SCREEN URINE NEGATIVE (NEGATIVE); *COCAINE SCREEN URINE NEGATIVE (NEGATIVE); CANNABINOID URINE SCREEN PRESUMTIVE POSITIVE (NEGATIVE); METHADONE URINE SCREEN NEGATIVE (NEGATIVE); OPIATES URINE SCREEN NEGATIVE (NEGATIVE); PHENCYCLIDINE URINE SCREEN NEGATIVE (NEGATIVE)
[2022-06-18] MEDS ORDERED: CEPHALEXIN 250MG CAPSULE PO ONE (17:15)
[2022-06-18] MEDS ORDERED: CEPH500C2 MT (17:33)
== END 2022-06-18 18:03 | disposition home or self-care (01) ==
LOC: ER 12:42
DX: N39.0 Urinary tract infection, site not specified (principal); N28.9 Disorder of kidney and ureter, unspecified; K59.00 Constipation, unspecified; R41.81 Age-related cognitive decline; E11.9 Type 2 diabetes mellitus without complications; I11.9 Hypertensive heart disease without heart failure; I25.2 Old myocardial infarction; E78.00 Pure hypercholesterolemia, unspecified; Z98.62 Peripheral vascular angioplasty status; Z94.89 Other transplanted organ and tissue status
CPT/HCPCS: 36415; 71045; 74176; 80053; 80305; 81003; 82140; 83605; 84443; 84484; 85025; 87186; 99285